=== PATIENT | female | born 1980 | race Two or more races ===

== ENCOUNTER 2022-09-21 19:03 | Emergency (ER) | payer OTHER ==
[~2022-09-21] VITALS: Ht 157.5 cm; Wt 52.6 kg
--- NOTE | 2022-09-21 19:33 | NUR ---
BIBS C/O SOB, COUGH W/ PHLEGM X 7DAYS. PT AAOX4, IN NAD. VITALS CHECKED.
--- NOTE | 2022-09-21 19:54 | NUR ---
XR AT BEDSIDE
--- NOTE | 2022-09-21 21:30 | NUR ---
Patient discharged to home in stable condition. Written and verbal after care instructions given. Patient verbalizes understanding of instruction.
[2022-09-21 22:09] VITALS: BP 114/69
== END 2022-09-21 21:30 | disposition home or self-care (01) ==
LOC: ER 19:13
DX: R05.9 Cough, unspecified (principal)
CPT/HCPCS: 71045-TC